=== PATIENT | male | born 1980 | race Caucasian/White ===

== ENCOUNTER 2017-11-14 16:43 | Emergency (ER) | payer MEDICAID ==
[~2017-11-14] VITALS: Ht 177.8 cm; Wt 104.5 kg
[2017-11-14 17:20] VITALS: Ht 177.8 cm; Wt 104.5 kg
[2017-11-14] MEDS ORDERED: LISINOPRIL10 MG PO (17:24)
[2017-11-14] MEDS ORDERED: TRAMADOL HCL E100 M1 PO (20:04)
[2017-11-14 21:28] VITALS: BP 118/74
== END 2017-11-14 21:13 | disposition home or self-care (01) ==
LOC: D.ER 16:43
DX: S20.219A Contusion of unspecified front wall of thorax, initial encounter (principal); V43.62XA Car passenger injured in collision with other type car in traffic accident, initial encounter; Y93.89 Activity, other specified; Y92.410 Unspecified street and highway as the place of occurrence of the external cause; I10 Essential (primary) hypertension